=== PATIENT | female | born 1940 | race Caucasian/White ===

== ENCOUNTER 2017-08-20 15:18 | Inpatient (IN) | payer OTHER ==
[~2017-08-20] VITALS: Ht 167.6 cm; Wt 64.0 kg
--- NOTE | ~2017-08-20 | 2DMMODE ---
[facility] [address] [place] [address] 2 D/M-MODE ECHOCARDIOGRAM Name: HELEN MORALES Room #: 416-P [facility] IN ..#: [id number] Admission: 08/20/17 Attend Phys: Dinh Min, Discharge: Date of : 38 Date of Service: 08/21/17 1838 Report #: [id number] THIS REPORT FOR: //name// APPROVED REPORT Study performed: 08/21/2017 11:55:16 EXAM: Comprehensive 2D, Doppler, and color-flow Echocardiogram Patient Location: Echo lab Room #: [facility] Status: routine BSA: 1.72 HR: 63 bpm BP: 139/62 mmHg Rhythm: NSR Other Information Study Quality: Adequate Indications Possible storke, HTN Echo Enhancing Agent Comments: Unable to do bubble study due to machine malfunction. 2D Dimensions RVDd: 30.34 mm LVEF(%): 51.06 (>50%) IVSd: 9.77 (7-11mm) LVOT Diam: 19.89 (18-24mm) LVDd: 39.86 mm PWd: 9.99 (7-11mm) LVDs: 29.64 (25-40mm) Aortic Root: 31.55 mm Wilks's LVEF: 51.06 % Volumes Left Atrial Volume (Systole) Single Plane 4CH: 31.71 mL Single Plane 2CH: 28.90 mL LA ESV Index: 20.00 mL/m2 Aortic Valve AoV Peak Avelino.: 1.57 m/s AO Peak Gr.: 9.84 mmHg LVOT Max P.11 mmHg LVOT Max V: 1.51 m/s ELIDA Vmax: 2.99 cm2 [facility] [address] [place] [address] 2 D/M-MODE ECHOCARDIOGRAM Name: KRISTENROXIEHELEN S Room #: 416-[facility]#: [id number] Admission: 08/20/17 Attend Phys: Dinh Min, Discharge: Date of : 38 Date of Service: 08/21/17 1838 Report #: [id number] Mitral Valve E/A Ratio: 0.7 MV Decel. Time: 224.97 ms MV E Max Avelino.: 0.76 m/s MV A Avelino.: 1.02 m/s MV PHT: 65.24 ms IVRT: 64.59 ms Pulmonary Valve PV Peak Avelino.: 0.99 m/s PV Peak Gr.: 3.92 mmHg Pulmonary Vein P Vein S: 0.67 m/s P Vein A: 0.39 m/s P Vein D: 0.33 m/s P Vein A Dur.: 129.2 msec P Vein S/D Ratio: 2.03 Tricuspid Valve TR Peak Avelino.: 1.90 m/s RAP Estimate: 5.00 mmHg TR Peak Gr.: 14.39 mmHg PA Pressure: 19.00 mmHg Left Ventricle The left ventricle is normal size. There is normal LV segmental wall motion. There is normal left ventricular wall thickness. Left ventricular systolic function is normal. LVEF is 60-65%. Mild diastolic dysfunction is present (impaired relaxation pattern). Right Ventricle The right ventricle is normal size. The right ventricular systolic function is normal. Atria The left atrium size is normal. No ASD or PFO noted with color doppler. The right atrium size is normal. Aortic Valve Aortic valve is mildy calcified. No aortic regurgitation is present. There is no aortic valvular stenosis. Mitral Valve Mild mitral annular calcification. Trace mitral regurgitation. Tricuspid Valve The tricuspid valve is normal in structure. Trace tricuspid [place] [id number] 2 D/M-MODE ECHOCARDIOGRAM Name: HELEN MORALES Room #: 416-P [facility] IN [facility]#: [id number] Admission: 08/20/17 Attend Phys: Dinh Min, Discharge: Date of : 38 Date of Service: 08/21/17 1838 Report #: [id number] regurgitation. Estimated PAP is 20mmHg. Pulmonic Valve The pulmonary valve is normal in structure. Trace pulmonic regurgitation. Great Vessels The aortic root is normal in size. IVC is normal in size and collapses >50% with inspiration. Pericardium There is no pericardial effusion. <Conclusion> Left ventricular systolic function is normal. There is normal LV segmental wall motion. LVEF is 60-65%. Mild diastolic dysfunction Bubble study reported as normal but not recorded for review Aortic valve is mildy calcified. No aortic regurgitation or stenosis Mild mitral annular calcification. Trace mitral regurgitation. There is no pericardial effusion. <ELECTRONICALLY SIGNED> By: Dean Hillman MD, FACC 08/21/171837 37 37 Dean Hillman MD, FACC /INF
--- NOTE | ~2017-08-20 | 2DMMODE ---
[address] [address] 2 D/M-MODE ECHOCARDIOGRAM Name: CARMENHELEN S Room #: 416-P [facility] IN ..#: [id number] Admission: 08/20/17 Attend Phys: Dinh Min, Discharge: Date of : 38 Date of Service: 08/22/17 0925 Report #: [id number] THIS REPORT FOR: //name// APPROVED REPORT Study performed: 08/22/2017 09:49:15 EXAM: Limited 2D Echocardiogram Patient Location: Echo lab Room #: [facility] Status: routine BSA: 1.72 HR: 77 bpm BP: 146/76 mmHg Rhythm: NSR Other Information Study Quality: Adequate Indications Limited echo for bubble study. Possible stroke. (Complete echo done 08/21/17) Echo Enhancing Agent Indication: Rule out Shunt Agent(s) / Amount(s) Used: Agitated Saline 6 cc Comments: Repeat echo for bubble study due to machine malfunction. Left Ventricle Left ventricular systolic function is normal. LVEF is 60-65%. Right Ventricle The right ventricle is normal size. The right ventricular systolic function is normal. Atria No shunting noted by contrast bubble study. Pericardium There is no pericardial effusion. [address] [address] 2 D/M-MODE ECHOCARDIOGRAM Name: HELEN MORALES Room #: 416-P ADM IN M.R.#: [id number] Admission: 08/20/17 Attend Phys: Dinh Min, Discharge: Date of : 38 Date of Service: 08/22/17924 Report #: [id number] <Conclusion> No shunting noted by contrast bubble study. <ELECTRONICALLY SIGNED> By: Dean Hillman MD, FACC 08/22/17924 4 4 Dean Hillman MD, FACC /INF
--- NOTE | ~2017-08-20 | HC ---
[facility] [place] [address] CONSULTATION Name: CARMENHELEN Gabriel Room #: 416-P [facility] IN ..#: [id number] Admission: 08/20/17 Attend Phys: Dinh Min DO Discharge: 08/22/17 Date of : 38 Report #: [id number] THIS REPORT FOR: //name// CC: Dinh Antonioelle Jaci DATE OF SERVICE: 08/21/2017 HISTORY OF PRESENT ILLNESS: This is a 77-year-old female patient who was evaluated by me to determine any neurological etiology for the patient's dizziness. This dizziness started spontaneously without any trauma, it was a severe dizziness, she feels somewhat better now, movement of the head made the dizziness worse. She did not have any focal neurological deficit with it. She has improved compared to yesterday. Yesterday, she also had some diplopia, which is not there today. She also had some nausea associated with it and that is also better. REVIEW OF SYSTEMS: Positive for nausea, vomiting, and some right-sided weakness in the past. She said she also had dizziness in the past. She suffers from the back pain as well as urinary tract infection. All the symptoms are going on for a long time. Otherwise, this morning she feels that she does not have any new eye, ENT, cardiac, respiratory, GI, , musculoskeletal, constitutional, dermatological, hematological, psychiatric, throat, allergic or endocrine symptom associated with present symptomatology. She did have some dizziness and nausea, which is better. PAST MEDICAL HISTORY: Positive for this kind of episodes in the past. FAMILY HISTORY: Negative for early age stroke. SOCIAL HISTORY: She denies the use of tobacco or alcohol. PHYSICAL EXAMINATION: The patient's examinations indicate she is alert. She is responsive. Her speech, concentration, fund of knowledge and memory is at her baseline. She is oriented. Cranial nerve examination 2-12 is unremarkable. There does not appear to be any nystagmus. Strength, sensation, reflexes and tone is symmetrical. I do not see any cerebellar sign or papilledema. She is reasonably well-developed individual who does not have any dysmorphic features of eyes, ears and face. Her hearing and vision looks adequate. Pulses are somewhat difficult to feel, but she has no edema, cyanosis, or jaundice. Cardiac examination shows unremarkable heart sounds and no murmur or arrhythmia. She has no respiratory difficulty or rhonchi on either side. Blood pressure is 139/62, respirations 18, pulse is 73, and temperature is 98. LABORATORY DATA: White count is normal at 8.3. She had pretty extensive workup including MRI and MRA and that does not show any acute changes. [address] [address] CONSULTATION Name: HELEN MORALES Room #: 416-P [facility] IN M.R.#: [id number] Admission: 08/20/17 Attend Phys: Dinh Min DO Discharge: 08/22/17 Date of : 38 Report #: [id number] IMPRESSION: The patient's symptoms are most likely secondary to ENT pathology. 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 I discussed that aspect with her. She is scheduled to have a physical and occupational therapy. I will suggest considering ENT consult in this patient and follow up with them. We will see how she does with physical and occupational therapy. RECOMMENDATIONS: 1. See how she does with PT and OT. 2. I do not think we need any further neurological workup. 3. I will suggest getting an ENT consult and follow up with them. 4. I do not believe the patient's symptoms are neurological in origin. Thank you very much for this referral and if you have any question, please feel free to contact me. <ELECTRONICALLY SIGNED> By: Bakari Lopez MD 08/27/17 1815 1134 [id number] Bakari Lopez MD /nt
--- NOTE | ~2017-08-20 | EKG ---
[address] [place] [address] ELECTROCARDIOGRAM REPORT Name: CARMENHELEN S Room #: 170-3 ADM IN M.R.#: [id number] Admission: 08/20/17 Attend Phys: Dinh Min DO Discharge: Date of : 38 Report #: [id number] THIS REPORT FOR: //name// [facility] ED Test Date: 2017-08-20 Test Time: 15:31:23 Pat Name: HELEN MORALES Department: Room: 170 Gender: F Girls Tennis Coach: [place] : 1940 Requested By: Darby Busch Order Number: [id number] MD: Roland Greer Measurements Intervals [place] Rate: 75 P: 55 NC: 169 QRS: 32 QRSD: 89 T: 64 QT: 401 QTc: 448 Interpretive Statements Sinus rhythm Anteroseptal infarct, old Compared to ECG 06/06/2014 12:25:56 No significant changes Electronically Signed On 08-20-2017 19:01:37 WOOD BOATBUILDER APPRENTICE by Roland Greer [email or web address] <ELECTRONICALLY SIGNED> By: Roland Greer MD 08/20/17 1901 30 30 Roland Greer MD /GAYATRI
[~2017-08-20 15:18] MED LIST: ASPIRIN325; CALCIUM 500 +1 EAC5 PO; CENTRUM SILVER1 EAC2; CIPROFLOXACIN500 M1 PO; COLESTID1 GM; HYDROCHLOROTHIA25 M1 PO; NIASPAN ER 101000 M1 PO; NORCO 5-325 TA1 EACH PO; OMEGA-31000 MG PO; PERCOCET 5-3251 EACH PO; VASOTEC20 MG
[2017-08-20 15:23] VITALS: BP 157/69
[2017-08-20 15:47] LABS: ABSOLUTE NEUTROPHILS 7.2 thou/uL (1.4-8.2); BASOPHILS 0.4 % (0.0-2.0); EOSINOPHILS 0.2 % (0.0-3.0); HEMATOCRIT 40.7 % (37.0-47.0); HEMOGLOBIN 13.4 gm/dL (12.0-15.0); LYMPHOCYTES 16.8 % (24.0-44.0); MCH 28.9 pg (26.0-34.0); MCV 87.6 fL (80.0-100.0); MONOCYTES 3.1 % (1.0-8.0); PLATELET COUNT 240 thou/uL (150-400); POLYS 79.5 % (36.0-66.0); RBC 4.65 mil/uL (4.20-5.00); RDW 13.7 % (10.5-14.5)
[2017-08-20 15:54] LABS: URINE BILIRUBIN NEGATIVE (Negative); URINE BLOOD NEGATIVE (Negative); URINE CLARITY CLEAR; URINE COLOR YELLOW; URINE GLUCOSE-RANDOM* NEGATIVE (Negative); URINE KETONES 1+ (Negative); URINE LEUKOCYTES-REFLEX NEGATIVE (Negative); URINE NITRITE-REFLEX NEGATIVE (Negative); URINE PROTEIN (DIPSTICK) NEGATIVE (Negative); URINE UROBILINOGEN 0.2 E.U./dl (0.2-1.0)
[2017-08-20 15:57] LABS: ANION GAP 8 mmol/L (7-16); BUN 24 mg/dL (7-18); CHLORIDE 104 mmol/L (98-107); CO2 27 mmol/L (21-32); CREATININE 0.8 mg/dL (0.6-1.0); GLUCOSE 173 mg/dL (74-106); POTASSIUM 3.7 mmol/L (3.5-5.1); SODIUM 139 mmol/L (136-145)
[2017-08-20 16:04] LABS: ALBUMIN 3.8 g/dL (3.4-5.0); DIRECT BILIRUBIN < 0.1 mg/dL (<0.1-0.3); LIPASE 133 U/L (73-393); SGOT 21 U/L (15-37); SGPT 41 U/L (30-65); TOTAL BILIRUBIN 0.4 mg/dL (<0.1-1.0); TOTAL PROTEIN 6.8 g/dL (6.4-8.2)
[2017-08-20 21:14] VITALS: BP 144/75
[2017-08-20 21:39] VITALS: BP 154/74
[2017-08-21 04:09] VITALS: BP 139/62
[2017-08-21 06:17] LABS: ABSOLUTE NEUTROPHILS 5.1 thou/uL (1.4-8.2); BASOPHILS 0.4 % (0.0-2.0); EOSINOPHILS 1.5 % (0.0-3.0); HEMATOCRIT 38.9 % (37.0-47.0); LYMPHOCYTES 28.8 % (24.0-44.0); MCH 29.5 pg (26.0-34.0); MCHC 33.4 g/dL (28.0-37.0); MCV 88.3 fL (80.0-100.0); MONOCYTES 7.4 % (1.0-8.0); PLATELET COUNT 251 thou/uL (150-400); POLYS 61.9 % (36.0-66.0); RDW 13.8 % (10.5-14.5); WBC 8.3 thou/uL (4.0-11.0)
[2017-08-21 07:04] LABS: ANION GAP 9 mmol/L (7-16); BUN 22 mg/dL (7-18); CALCIUM 8.7 mg/dL (8.5-10.1); CHLORIDE 105 mmol/L (98-107); CHOLESTEROL 233 mg/dL (<200); CO2 27 mmol/L (21-32); CREATININE 0.9 mg/dL (0.6-1.0); GLUCOSE 136 mg/dL (74-106); HDL CHOLESTEROL 45 mg/dL (>40); LDL CHOLESTEROL 160 mg/dL (<100); POTASSIUM 3.9 mmol/L (3.5-5.1); SODIUM 141 mmol/L (136-145); TC:HDL 5.2 Ratio (Not establshd); TRIGLYCERIDE 144 mg/dL (<150); VLDL 29 mg/dL (<40)
[2017-08-21] MEDS ORDERED: NORVASC5 MG PO ×2 (07:38→07:40)
[2017-08-21] MEDS ORDERED: ENALAPRIL MALEA20 MG PO (07:41)
[2017-08-21] MEDS ORDERED: COLESTIPOL HCL1 G1 PO (07:43)
[2017-08-21 09:33] VITALS: BP 145/76
[2017-08-21 15:06] VITALS: BP 144/52
[2017-08-21 19:25] VITALS: BP 122/47
[2017-08-21 20:00] VITALS: BP 122/47; BP 144/52
[2017-08-22] VITALS: BP 163/82
[2017-08-22 04:00] VITALS: BP 163/82
[2017-08-22 07:13] VITALS: BP 146/76
[2017-08-22] MEDS ORDERED: MECLIZINE HCL25 MG PO (08:19)
[2017-08-22 10:55] VITALS: BP 146/76
== END 2017-08-22 13:00 | disposition home or self-care (01) | DRG 149 ==
LOC: ER 15:18 → 4N 18:08 → EROBS 18:08 → 4N 21:13 → ENTRNSPT 08-22 12:53 → EDTRNSPTSTS 08-22 12:55 → 4N 08-22 13:00
PROVIDERS: Emergency Medicine; Family Medicine
PROC: B24BZZ4 Ultrasonography of Heart with Aorta, Transesophageal (ICD-10-PCS; principal; 2017-08-21)
DX: R42 Dizziness and giddiness (principal); H53.2 Diplopia; I10 Essential (primary) hypertension; Z86.73 Personal history of transient ischemic attack (TIA), and cerebral infarction without residual deficits; Z79.82 Long term (current) use of aspirin; Z79.899 Other long term (current) drug therapy; Z88.5 Allergy status to narcotic agent
CPT/HCPCS: 10790